=== PATIENT | male | born 1955 | race Caucasian/White ===

== ENCOUNTER 2018-09-13 14:39 | Emergency (ER) | payer OTHER ==
[~2018-09-13] VITALS: Ht 170.2 cm; Wt 99.8 kg
[2018-09-13 15:10] LABS: ABSOLUTE NEUTROPHILS 8.9 thou/uL (1.4-8.2); BASOPHILS 0.6 % (0.0-2.0); EOSINOPHILS 0.3 % (0.0-3.0); HEMATOCRIT 45.9 % (42.0-52.0); HEMOGLOBIN 15.5 gm/dL (14.0-18.0); LYMPHOCYTES 12.8 % (24.0-44.0); MCH 29.4 pg (26.0-34.0); MCHC 33.8 g/dL (28.0-37.0); MONOCYTES 8.9 % (1.0-8.0); PLATELET COUNT 193 thou/uL (150-400); POLYS 77.4 % (36.0-66.0); RBC 5.27 mil/uL (4.50-6.00); RDW 13.2 % (10.5-14.5); WBC 11.5 thou/uL (4.0-11.0)
[2018-09-13 15:17] LABS: ANION GAP 8 mmol/L (7-16); BUN 24 mg/dL (7-18); CALCIUM 9.3 mg/dL (8.5-10.1); CHLORIDE 95 mmol/L (98-107); CO2 31 mmol/L (21-32); CREATININE 1.5 mg/dL (0.7-1.3); GLUCOSE 109 mg/dL (74-106); POTASSIUM 4.1 mmol/L (3.5-5.1); SODIUM 134 mmol/L (136-145)
[2018-09-13 15:23] LABS: ALBUMIN 3.4 g/dL (3.4-5.0); SGOT 22 U/L (15-37); SGPT 21 U/L (30-65); TOTAL BILIRUBIN 0.6 mg/dL (<0.1-1.0); TOTAL PROTEIN 8.2 g/dL (6.4-8.2); TROPONIN-I <0.06 ng/mL (<0.06)
[2018-09-13] MEDS ORDERED: TOPROL XL25 MG PO (15:29)
[2018-09-13] MEDS ORDERED: COZAAR 25 MG TA25 M1 PO (15:29)
[2018-09-13] MEDS ORDERED: HYDROCHLOROTHIA25 M2 PO (15:30)
[2018-09-13] MEDS ORDERED: PAXIL10 MG PO (15:30)
[2018-09-13] MEDS ORDERED: MULTI VITAMIN1 EACH PO (15:30)
[2018-09-13] MEDS ORDERED: PROBIOTIC1 EAC1 PO (15:39)
--- NOTE | 2018-09-13 15:49 | EKG ---
[address] [place] [place] [address] ELECTROCARDIOGRAM REPORT Name: ALENLEEANNE ABAD Suad Room #: [facility]#: [id number] Admission: 09/13/18 Attend Phys: Discharge: Date of : 51 Report #: [id number] THIS REPORT FOR: //name// [facility] ED Test Date: 2018-09-13 Test Time: 14:45:34 Pat Name: LEEANNE LOWRY Department: Room: Gender: M Supervisor [employer]: : 1955 Requested By: Narcisa Russell Order Number: [id number] MD: Jose Ceja Measurements Intervals West Rate: 69 P: FL: QRS: 58 QRSD: 93 T: 83 QT: 411 QTc: 441 Interpretive Statements Atrial fibrillation Minimal ST elevation, anterior leads No previous ECG available for comparison Electronically Signed On 09-13-2018 15:48:57 [employer] EDITOR by Jose Ceja [email or web address] <ELECTRONICALLY SIGNED> By: Jose Ceja MD 09/13/18 1548 1445 1445 Jose Ceja MD /ANDREINA
[2018-09-13] MEDS ORDERED: TESSALON PERLE100 MG PO (17:02)
[2018-09-13] MEDS ORDERED: ZPAK PO (17:02)
[2018-09-13] MEDS ORDERED: VENTOLIN HFA 1818 GM INH (17:02)
[2018-09-13 17:24] VITALS: BP 135/68
== END 2018-09-13 17:24 | disposition home or self-care (01) ==
LOC: ER 14:39
PROVIDERS: Physician Assistant
DX: J18.8 Other pneumonia, unspecified organism (principal); E86.0 Dehydration; R55 Syncope and collapse; F17.210 Nicotine dependence, cigarettes, uncomplicated